=== PATIENT | female | born 1975 | race Hispanic/Latino ===

== ENCOUNTER 2016-05-18 21:46 | Emergency (ER) | payer OTHER ==
[~2016-05-18] VITALS: Ht 162.6 cm; Wt 73.7 kg
[~2016-05-18 21:46] MED LIST: FLEXERIL10 MG PO; NO MEDICATIONS; NORCO 5/3251 TABLET PO; PREDNISONE20 MG PO; PRILOSEC40 MG PO; PROVENTIL HFA6.7 GM IH; TESSALON200 MG PO; TYLENOL WITH C1 EACH PO; VENTOLIN HFA18 GM IH; ZITHROMAX Z-PA250 MG PO; ZOFRAN ODT4 MG PO
[2016-05-18 21:48] VITALS: BP 114/77
== END 2016-05-19 01:55 | disposition left against medical advice (07) ==
LOC: EME 21:46
DX: R50.9 Fever, unspecified (principal); R52 Pain, unspecified; J02.9 Acute pharyngitis, unspecified; R11.2 Nausea with vomiting, unspecified; R09.89 Other specified symptoms and signs involving the circulatory and respiratory systems; Z53.21 Procedure and treatment not carried out due to patient leaving prior to being seen by health care provider

== ENCOUNTER 2016-05-23 08:21 | Emergency (ER) | payer SELFPAY ==
[~2016-05-23] VITALS: Ht 162.6 cm; Wt 72.5 kg
[2016-05-23] MEDS ORDERED: PROAIR HFA8.5 GM IH (08:34)
[2016-05-23 10:07] LABS: INFLUENZA A VIRAL ANTIGEN NEGATIVE; INFLUENZA B VIRAL ANTIGEN NEGATIVE
[2016-05-23] MEDS ORDERED: ROBITUSSIN NIG118 ML PO (11:59)
[2016-05-23] MEDS ORDERED: TESSALON PERLE100 MG PO (11:59)
[2016-05-23] MEDS ORDERED: MUCUS ER600 MG PO (11:59)
[2016-05-23] MEDS ORDERED: ZOFRAN ODT4 MG PO (11:59)
[2016-05-23 12:19] VITALS: BP 124/79
== END 2016-05-23 12:21 | disposition home or self-care (01) ==
LOC: EME 08:21
PROVIDERS: Nurse Practitioner Family
DX: J20.9 Acute bronchitis, unspecified (principal); J06.9 Acute upper respiratory infection, unspecified; R11.2 Nausea with vomiting, unspecified; F17.200 Nicotine dependence, unspecified, uncomplicated
CPT/HCPCS: 71020; 87502; 93005; 99281; 99284

== ENCOUNTER 2016-08-25 22:39 | Emergency (ER) | payer SELFPAY ==
[~2016-08-25] VITALS: Ht 162.6 cm; Wt 77.2 kg
[~2016-08-25 22:39] MED LIST changes: +MUCUS ER600 MG PO; +PROAIR HFA8.5 GM IH; +ROBITUSSIN NIG118 ML PO; +TESSALON PERLE100 MG PO
[2016-08-25 23:16] LABS: HEMATOCRIT 39.4 % (36.0-46.0); MCH 29.5 PG (29.0-34.0); MCHC 33.8 G/DL (30.0-36.0); MCV 87.4 FL (83-99); MEAN PLAT.VOLUME 9.8 uM^3 (9.5-12.4); PLATELET COUNT 293 K/uL (156-360); RBC DIS.WIDTH-CV 14.3 % (11.8-14.6); RBC DIS.WIDTH-SD 45.7 % (39-53); RED BLOOD COUNT 4.51 M/uL (3.80-5.20); WHITE BLOOD COUNT 9.6 K/uL (4.1-10.2)
[2016-08-25 23:37] LABS: CHLORIDE 111 mEq/L (99-109); POTASSIUM 3.8 mEq/L (3.7-5.4); SODIUM 139 mEq/L (136-147)
[2016-08-25 23:39] LABS: GLUCOSE 87 mg/dL (70-99)
[2016-08-25 23:40] LABS: ANION GAP 8 MEQ/L (2-14); TROP-I INTERPRETATION NEGATIVE; TROPONIN-I < 0.01 ng/mL (0.0-0.30)
[2016-08-25 23:43] LABS: GFR ESTIMATE (CALCULATED) > 59 mL/min/; UREA NITROGEN (BUN) 13 mg/dL (9-23)
[2016-08-26 00:39] LABS: ADD MIUA? NO; BILIRUBIN NEGATIVE; BLOOD NEGATIVE; COLOR STRAW ((YELLOW)); GLUCOSE (STRIP) NEGATIVE; KETONES NEGATIVE; LEUKOCYTES NEGATIVE; NITRITE NEGATIVE; PROTEIN (STRIP) NEGATIVE; SPECIFIC GRAVITY 1.006 (1.000-1.030); UROBILINOGEN 0.2 MG/DL (0.2-1.0)
[2016-08-26] MEDS ORDERED: MAALOX MAXIMUM355 ML PO (01:13)
[2016-08-26] MEDS ORDERED: ZOFRAN ODT4 MG PO (01:13)
[2016-08-26 01:20] VITALS: BP 00/0
== END 2016-08-26 01:20 | disposition home or self-care (01) ==
LOC: EME 22:39
PROVIDERS: Nurse Practitioner Family
DX: R10.13 Epigastric pain (principal); R11.2 Nausea with vomiting, unspecified; R51 Headache; R10.32 Left lower quadrant pain; F17.200 Nicotine dependence, unspecified, uncomplicated; Z90.5 Acquired absence of kidney; Z85.528 Personal history of other malignant neoplasm of kidney
CPT/HCPCS: 71020; 74000; 80048; 81003; 84484; 85027; 93005; 99281; 99283

== ENCOUNTER 2017-04-29 19:28 | Emergency (ER) | payer SELFPAY ==
[~2017-04-29] VITALS: Ht 162.6 cm; Wt 75.5 kg
[~2017-04-29 19:28] MED LIST changes: +DIFLUCAN150 MG PO; +MAALOX MAXIMUM355 ML PO
[2017-04-29 20:32] LABS: HEMATOCRIT 39.8 % (36.0-46.0); MCHC 34.4 G/DL (30.0-36.0); MCV 87.1 FL (83-99); MEAN PLAT.VOLUME 9.6 uM^3 (9.5-12.4); PLATELET COUNT 340 K/uL (156-360); RBC DIS.WIDTH-CV 13.5 % (11.8-14.6); RBC DIS.WIDTH-SD 43.4 % (39-53); RED BLOOD COUNT 4.57 M/uL (3.80-5.20); WHITE BLOOD COUNT 8.5 K/uL (4.1-10.2)
[2017-04-29 20:40] LABS: CHLORIDE 109 mEq/L (99-109); POTASSIUM 4.2 mEq/L (3.7-5.4); SODIUM 140 mEq/L (136-147)
[2017-04-29 20:42] LABS: GLUCOSE 82 mg/dL (70-99)
[2017-04-29 20:43] LABS: ANION GAP 8 MEQ/L (2-14)
[2017-04-29 20:46] LABS: GFR ESTIMATE (CALCULATED) > 59 mL/min/
[2017-04-29 20:47] LABS: UREA NITROGEN (BUN) 12 mg/dL (9-23)
[2017-04-29 20:52] LABS: TROP-I INTERPRETATION NEGATIVE; TROPONIN-I < 0.01 ng/mL (0.0-0.30)
[2017-04-29 21:00] VITALS: BP 123/75
[2017-04-29 22:47] LABS: TROP-I INTERPRETATION NEGATIVE; TROPONIN-I < 0.01 ng/mL (0.0-0.30)
== END 2017-04-29 22:42 | disposition left against medical advice (07) ==
LOC: EME 19:28
PROVIDERS: Emergency Medicine
DX: R07.9 Chest pain, unspecified (principal); Z53.20 Procedure and treatment not carried out because of patient's decision for unspecified reasons; J45.909 Unspecified asthma, uncomplicated; Z90.5 Acquired absence of kidney; F17.200 Nicotine dependence, unspecified, uncomplicated
CPT/HCPCS: 71020; 80048; 84484; 85027; 93005; 99281; 99284

== ENCOUNTER 2017-07-10 22:14 | Emergency (ER) | payer SELFPAY ==
[~2017-07-10] VITALS: Ht 162.6 cm; Wt 72.4 kg
[2017-07-10 22:45] LABS: MCH 30.3 PG (29.0-34.0); MCV 86.6 FL (83-99); PLATELET COUNT 317 K/uL (156-360); RBC DIS.WIDTH-CV 13.8 % (11.8-14.6); RBC DIS.WIDTH-SD 43.6 % (39-53); RED BLOOD COUNT 4.62 M/uL (3.80-5.20); WHITE BLOOD COUNT 11.5 K/uL (4.1-10.2)
[2017-07-10 22:56] LABS: CHLORIDE 110 mEq/L (99-109); POTASSIUM 3.9 mEq/L (3.7-5.4); SODIUM 138 mEq/L (136-147)
[2017-07-10 22:58] LABS: GLUCOSE 92 mg/dL (70-99)
[2017-07-10 23:02] LABS: CREATININE 0.8 mg/dL (0.6-1.3); GFR ESTIMATE (CALCULATED) > 59 mL/min/
[2017-07-10 23:03] LABS: UREA NITROGEN (BUN) 9 mg/dL (9-23)
[2017-07-10 23:06] LABS: TROP-I INTERPRETATION NEGATIVE; TROPONIN-I < 0.01 ng/mL (0.0-0.30)
[2017-07-11 01:33] LABS: APPEARANCE CLEAR ((CLEAR)); BILIRUBIN NEGATIVE; BLOOD SMALL; COLOR STRAW ((YELLOW)); GLUCOSE (STRIP) NEGATIVE; KETONES 20; LEUKOCYTES NEGATIVE; NITRITE NEGATIVE; PROTEIN (STRIP) NEGATIVE; SPECIFIC GRAVITY 1.008 (1.000-1.030); UROBILINOGEN 0.2 MG/DL (0.2-1.0)
[2017-07-11 01:35] LABS: BACTERIA RARE /HPF; EPITHELIAL CELLS RARE /HPF; MUCUS TRACE /LPF; RED BLOOD CELLS 0-5 /HPF (0-5); UCUL ADDED? NO; WHITE BLOOD CELLS 0-5 /HPF (0-5)
[2017-07-11 03:27] VITALS: BP 115/76
== END 2017-07-11 03:28 | disposition home or self-care (01) ==
LOC: EME 22:14
PROVIDERS: Emergency Medicine
DX: G43.909 Migraine, unspecified, not intractable, without status migrainosus (principal); R07.9 Chest pain, unspecified; J45.909 Unspecified asthma, uncomplicated; F17.200 Nicotine dependence, unspecified, uncomplicated; Z85.528 Personal history of other malignant neoplasm of kidney; Z90.5 Acquired absence of kidney; Z88.6 Allergy status to analgesic agent; Z88.0 Allergy status to penicillin
CPT/HCPCS: 71046; 80048; 81003; 84484; 85025; 85027; 87502; 93005; 99281; 99285; J1100; J1200; J2765; J7030

== ENCOUNTER 2017-12-28 21:32 | Emergency (ER) | payer SELFPAY ==
[~2017-12-28] VITALS: Ht 162.6 cm; Wt 66.2 kg
[2017-12-28] MEDS ORDERED: SUDAFED PE PRE1 EAC1 PO (23:33)
[2017-12-28] MEDS ORDERED: ZITHROMAX Z-PA250 MG PO (23:33)
[2017-12-28] MEDS ORDERED: AFRIN,GENASAL D15 ML BOTH NARES (23:33)
[2017-12-28 23:50] VITALS: BP 128/87
== END 2017-12-28 23:50 | disposition home or self-care (01) ==
LOC: EME 21:32
DX: J06.9 Acute upper respiratory infection, unspecified (principal); G43.909 Migraine, unspecified, not intractable, without status migrainosus; F17.200 Nicotine dependence, unspecified, uncomplicated; Z90.5 Acquired absence of kidney; Z88.6 Allergy status to analgesic agent; Z88.0 Allergy status to penicillin
CPT/HCPCS: 87651 90; 99281; 99285